=== PATIENT | male | born 1990 | race Hispanic/Latino ===

== ENCOUNTER 2023-01-21 19:37 | Emergency (ER) | payer SELFPAY ==
[2023-01-21] MEDS ORDERED: Lidocaine 1% w/Epinephrine 1:100K 20 ML VIAL ONE (20:57)
[2023-01-21] MEDS ORDERED: TETANUS, DIPHTHERIA TOX,ADULT (TDVAX) 0.5 ML VIAL IM ONE (20:57)
== END 2023-01-21 21:25 | disposition home or self-care (01) ==
LOC: ERS 19:37
DX: L02.411 Cutaneous abscess of right axilla (principal)
CPT/HCPCS: 10060; 90471; 90714